=== PATIENT | female | born 1940 | race Caucasian/White ===

== ENCOUNTER 2016-07-12 06:05 | Day surgery (SDC) | payer OTHER ==
[~2016-07-12] VITALS: Ht 154.9 cm; Wt 55.5 kg
[~2016-07-12 06:05] MED LIST: ACET500C4 PO; ALEN70TA48 PO; ASPI81 PO; CALC-51 PO; CHOL200018 PO; DOXY100C PO; LORA10TA7 PO; MOME13HF2 IH; OMEG100019 PO; OMEP20 PO; PRAV40 PO; SERT50TA12 PO; TRAZ-144 PO
[2016-07-12] MEDS ORDERED: SODIUM CHLORIDE 0.9% 1,000 ML IV ONE ×2 (06:15→07:02)
[2016-07-12] MEDS ORDERED: FentaNYL CITRATE-PF 100 MCG/2 ML VIAL ONE (07:36)
[2016-07-12] MEDS ORDERED: MIDAZOLAM HCL 2 MG/2 ML VIAL ONE (07:36)
[2016-07-12] MEDS ORDERED: MethylPREDNISolone SOD SUCC 125 MG/2 ML VIAL IVP ONE (08:30)
[2016-07-12] MEDS ORDERED: MethylPREDNISolone SOD SUCC 125 MG/2 ML VIAL ONE (09:14)
[2016-07-12] MEDS ORDERED: BENZOCAINE 20% 50 MCG/SPRAY 57 GM TP ONE (16:44)
[2016-07-12] MEDS ORDERED: LIDOCAINE HCL 4% 50 ML SOLUTION TP ONE (16:44)
[2016-07-12] MEDS ORDERED: ALBUTEROL SULFATE 2.5 MG/0.5 ML NEB SOLUTION NEB ONE (16:44)
[2016-07-12] MEDS ORDERED: LIDOCAINE HCL 2% 30 ML JELLY TP ONE (16:44)
[2016-07-12] MEDS ORDERED: OXYGEN THERAPY IH SCH (20:00)
== END 2016-07-12 10:15 | disposition home or self-care (01) ==
LOC: SURGERY 06:05
PROVIDERS: ATTEND Internal Medicine Critical Care Medicine
DX: J38.4 Edema of larynx (principal); B37.0 Candidal stomatitis; I10 Essential (primary) hypertension; J44.9 Chronic obstructive pulmonary disease, unspecified
CPT/HCPCS: 31623; 31624; 71010; 87015 ×2; 87070; 87101; 87147; 87205; 87220; 88108; 88312; 93005; J2250; J2930; J3010; J7030

== ENCOUNTER 2018-01-16 06:49 | Day surgery (SDC) | payer OTHER ==
[~2018-01-16] VITALS: Ht 154.9 cm; Wt 51.3 kg
[~2018-01-16 06:49] MED LIST changes: +CALC-1038 PO; -CALC-51 PO; +OMEG-135 PO; -OMEG100019 PO; -PRAV40 PO; +PRAV40TA4 PO; +SODIUM CHLORIDE 0.9% 1,000 ML IV ONE; -TRAZ-144 PO; +TRAZ-219 PO
[2018-01-16] MEDS ORDERED: BENZOCAINE 20% 50 MCG/SPRAY 57 GM TP ONE (06:50)
[2018-01-16] MEDS ORDERED: LIDOCAINE 2% 30 ML JELLY TP ONE (06:50)
[2018-01-16] MEDS ORDERED: LIDOCAINE 4% 50 ML SOLUTION TP ONE (06:50)
[2018-01-16] MEDS ORDERED: SODIUM CHLORIDE 0.9% 1,000 ML IV ONE (07:00)
[2018-01-16] MEDS ORDERED: MIDAZOLAM HCL 2 MG/2 ML VIAL ONE (07:44)
[2018-01-16] MEDS ORDERED: FentaNYL CITRATE-PF 100 MCG/2 ML VIAL ONE (07:44)
[2018-01-16] MEDS ORDERED: FAMO-136 PO (07:47)
[2018-01-16] MEDS ORDERED: FLUC200T PO (07:47)
[2018-01-16] MEDS ORDERED: MONT10TA21 PO (07:47)
[2018-01-16] MEDS ORDERED: ALBU8.5H8 IH (07:47)
[2018-01-16] MEDS ORDERED: ATOR40TA28 PO (07:47)
[2018-01-16] MEDS ORDERED: LISI2.5T2 PO (07:47)
[2018-01-16] MEDS ORDERED: TIOT4MIS2 PO (07:47)
[2018-01-16] MEDS ORDERED: MethylPREDNISolone SOD SUCC 125 MG/2 ML VIAL IVP ONE (08:45)
[2018-01-16] MEDS ORDERED: MethylPREDNISolone SOD SUCC 125 MG/2 ML VIAL ONE (09:05)
[2018-01-16] MEDS ORDERED: OXYGEN THERAPY IH SCH (20:00)
== END 2018-01-16 10:10 | disposition home or self-care (01) ==
LOC: SURGERY 06:49
PROVIDERS: ATTEND Internal Medicine Critical Care Medicine
DX: J38.4 Edema of larynx (principal); B37.0 Candidal stomatitis; J98.09 Other diseases of bronchus, not elsewhere classified; I10 Essential (primary) hypertension; F17.210 Nicotine dependence, cigarettes, uncomplicated; Z79.82 Long term (current) use of aspirin; Z79.891 Long term (current) use of opiate analgesic; Z98.890 Other specified postprocedural states; Z79.899 Other long term (current) drug therapy
CPT/HCPCS: 31623; 31624; 71045; 87015; 87070; 87205; 87206; 87220; 88108; 88312; J2250; J2930; J3010; J7030